=== PATIENT | male | born 1965 | race Caucasian/White ===

== ENCOUNTER 2016-05-22 15:38 | Emergency (ER) | payer OTHER ==
[2016-05-22 16:02] VITALS: BP 150/100
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
== END 2016-05-22 19:24 | disposition home or self-care (01) ==
LOC: ED 15:38
DX: S16.1XXA Strain of muscle, fascia and tendon at neck level, initial encounter (principal); M62.830 Muscle spasm of back; Z21 Asymptomatic human immunodeficiency virus [HIV] infection status; V49.40XA Driver injured in collision with unspecified motor vehicles in traffic accident, initial encounter; Y93.89 Activity, other specified; Y99.8 Other external cause status; Y92.89 Other specified places as the place of occurrence of the external cause
CPT/HCPCS: 99282